=== PATIENT | female | born 1985 ===

== ENCOUNTER 2017-08-24 06:06 | Inpatient (IN) | payer BC ==
[2017-08-24] MEDS ORDERED: ceFAZolin 1 gm in NS 0 GM/0 ML BAG IVPB ONE (07:28)
[2017-08-24] MEDS ORDERED: Propofol 10 mg/ml Inj (20 ML) ONE (07:36)
[2017-08-24] MEDS ORDERED: Midazolam 2 MG/2 ML VIAL ONE (07:36)
[2017-08-24] MEDS ORDERED: Vasopressin 20 Units/ml Inj ONE (07:41)
[2017-08-24] MEDS ORDERED: Bupivacaine-Epi 0.5%-1:200,000 PF Inj IJ ONE (08:00)
[2017-08-24] MEDS ORDERED: ceFAZolin IV 2 gm in Dextrose 2 GM/50 ML BAG IVPB ONE (08:08)
[2017-08-24] MEDS ORDERED: Sodium Chloride 0.9% 20 ML IV ONE (08:20)
[2017-08-24] MEDS ORDERED: Methylene Blue 10 mg/mL(10ml) IV ONE (09:01)
[2017-08-24] MEDS ORDERED: Neostigmine Methylsulfate 3mg/3ml Syringe IV ONE (10:21)
--- NOTE | 2017-08-24 13:27 | PCM.SURG1 ---
Surgeon's Initial Post Op Note - Surgeon's Notes Surgeon: Olayinka Izquierdo MD Network Firewall Engineer: Brittany KATZ Type of Anesthesia: General Endo, Local Pre-Operative Diagnosis: Symptomatic fibroid uterus. Abnbormal uterine bleeding. Chronic pelvic pain Operative Findings: Bulky fibroid uterus, multiple >10 myomas, myomas intramura , submucosal and suserosal. Uterus size approx 16 weeks size. normla bladder anatomy, ureters efluxing urine freely. left ovarian cyst excised. tubes appeared normal. Post-Operative Diagnosis: fibroid uterus. chronic pelvic pain. abnormal bleeding. interstitial cystitis Operation Performed: Robotic assisted myomectomy >10 myomas. laparotomy. Lysis of adhesions. Diagnostic cystoscopy Specimen/Specimens Removed: Myomas Estimated Blood Loss: EBL {In ML}: 20 Blood Products Given: N/A Drains Used: No Drains Post-Op Condition: Good Date of Surgery/Procedure: 08/24/17 Time of Surgery/Procedure: 13:29
--- NOTE | 2017-08-24 13:32 | PCM.OP ---
Operative Report - Operative Report Date of Surgery/Procedure: 08/24/17 Time of Surgery/Procedure: 13:30 Surgeon: Olayinka Izquierdo MD Talent Specialist: Brittany KATZ Anesthesia/Sedation: General with ET tube Pre-Operative Diagnosis: Chronic pevic pain. Fibroid uterus. Abnormal uterine bleeding Post-Operative Diagnosis: Chronic pevic pain. Fibroid uterus. Abnormal uterine bleeding. Interstitial cystitis Indication for Surgery: Worsening pelvic pain, pressure and abnormal uteirne bleeding Operative Findings: approx 16 weeks size fibroid uterus. large simple left ovarian cyst. intrapelvic adhesions. Cystoscopy with Len altamirano c/w IC possible. normla appearing tubes Procedure/Operation Description: Roboic myomectomy >10 myomas. Laparotomy. Lysis of adhesions. Diagnostic cystoscopy. detailed operative description *. This is a 32 year's old [place] female with an enlarged fibroid uterus, associated abnormal uterine bleeding, chronic pelvic pain and urinary frequency urgency. Following complete workup at the office which included an ultrasound, pelvic MRI as well as Pap smear a decision was made to proceeds with a robotic assisted myomectomy. The patient underwent a robotic assisted myomectomy in the past, and now is presenting with recurrence of uterine fibroids. After proper consent was obtained from the patient was taken to the operating room where general anesthesia was obtained without difficulty. She was placed in dorsal lithotomy position her legs were placed in adjustable Calvin stirrups. Careful attention was placed to avoid over-flexion or over- rotation of the lower extremities at the hip or the knee joints. Exam under anesthesia revealed a massively enlarged fibroid uterus, approximately 16 weeks size none mobile uterus. She was prepped and draped appropriately for robotic assisted myomectomy. Barragan catheter was inserted under sterile conditions. A standard size V-care uterine manipulator was inserted through the cervix and secured. Local anesthetic solutions of 0.25% Marcaine with epinephrine were utilized to infiltrate the skin prior to all abdominal skin incisions. A total of 20 mL of 0.25% Marcaine was utilized throughout the procedure. While tenting the abdominal wall, a Veres needle was carefully inserted above the umbilicus and a pneumoperitoneum was obtained. Intraperitoneal placement was confirmed with a droplet of water test through the needle as well as a significant drop in intra-abdominal pressure. A total of approximately 3 and half liters of CO2 gas was utilized to achieve pneumoperitoneum, and the limits intra-abdominal pressure was set at 15 mm. Approximately 3 cm above the umbilicus in the midline, an 8mm incision was made with a scalpel and a robotic trocar was introduced. A robotic camera was inserted and an initial survey of the patient's abdomen revealed an enlarged bulky fibroid uterus, boggy in appearance. Multiple intramural myomas were noted involving the posterior uterine well, the fundus, as well as the LEFT lateral uterine wall. Extensive peritoneal and omental adhesions involving loops of bowel and anterior abdominal well were identified; Extensive peritoneal adhesions were noted in the posterior cul-de-sac as well as to the anterior abdominal wall. Both ovaries and fallopian tubes appeared normal however adherent to the pelvic viscera and pelvic sidewall. The patient was placed in moderate Trendelenburg position. 3 robotic ports were utilized for this procedure. The first robotic port was placed on the patient's LEFT side approximately 6 cm superior today LEFT superior iliac crest. The second robotic port was placed 6 cm superior to the iliac crest on the RIGHT side. The third robotic port was placed approx. 8 cm right lateral the camera port in the midline. And finally an janitorial assistant port which was 12 mm in diameter was inserted approximately 8 cm LEFT lateral of the camera port in the midline. Talent Specialist port utilized was a VersaStep trocar system. All ports were approx. aligned along the same horizontal line on the abdomen in an arched fashion. All trocars were inserted under direct visualization while tenting the abdominal wall was then massively enlarged uterus extended past the umbilicus level. The placement of the trocars was all accomplished under careful and meticulous placement under direct visualization. Following the placement of all trocars, the da Virgil robotic system was docked in a parallel fashion without difficulty. The following instruments were utilized for this procedure: the bipolar cautery device, a monopolar oneal and finally a ProGrasp. Meticulous and careful lysis of adhesions as well as enterolysis was accomplished utilizing the monopolar oneal and bipolar device. Prior to the start of the myomectomy, both ureters and their courses were visualized; peristalsis bilaterally. Extensive lysis of adhesions and enterolysis was completed using the sharp and blunt dissection. Multiple bowel loops were released following the lysis of adhesions. The ovaries and tubes were also released from the dense peritoneal adhesions likely from her prior myomectomy. Tight and extensive adhesions focused mainly on the pelvic sidewall on the LEFT as well as the anterior abdominal wall, multiple loops of bowel were adherent to the incisional sites on the uterus from her prior robotic myomectomy. Following the completion of the lysis of adhesions and release of bowel adhesions, the pelvic anatomy was cleared and ready for the myomectomy. Diluted Pitressin solution 40 units in 120 mL of saline was utilized to inject around the myomas capsules in the anterior wall of the uterus as well in the posterior uterine wall and finally the fundus. The injection of the PITRESSIN solution into the uterine well to assist in hemostasis vaso-constriction was accomplished for a spinal needle inserted through the abdominal well into the peritoneal cavity. For each incision, a full thickness elliptical incision was made into the serosa of the uterus and carried down to the myoma capsule. Blunt and sharp dissection was used to enucleate the myomas. The first incision was made into the posterior uterine wall close to the fundus, extending from one lateral edge of the uterus to the opposite edge. Sharp and blunt dissection was carried out in a meticulous fashion to enucleate a cluster of large myomas which were placed in the abdominal cavity for later extraction. The endometrial cavity was not entered. The second large elliptical incision started on the anterior uterine well and extended in an elliptical fashion from RIGHT to LEFT edges of the uterus, excising a large fragment of the uterine serosa overlying the large cluster of myomas. Careful attention was paid to avoid the fallopian tubes insertions or cornuas during this process. Lastly, additional elliptical incision was made into the fundus and extending LEFT lateral. Full thickness incision was serosa and muscularis exposed a cluster of myomas extending into the submucosal region. Sharp and blunt dissection was utilized to excise and enucleate these myomas which were placed in the posterior cul-de-sac for later extraction. Multilayer closure was needed to close the space where the myomas were removed from. Using a 2-0 v-lock in continues fashion, good hemostasis was achieved. Excess serosa was excised to allow for tight closure of the serosal surface. All serosal incisions were closed utilizing 3-0 Monocryl in a baseball -like stitch fashion. Both anterior and posterior as well as fundal large elliptical incisions were closed in a similar fashion. FloSeal's as well as Interceed were applied to all incisions. Excellent hemostasis was noted throughout. The abdomen was throughout irrigated and cleared of all clots and debris. LEFT ovarian cyst was addressed next, utilizing sharp and blunt dissection the cyst was a nucleated placed in an Endo Catch and extracted from the patient's abdomen and sent to pathology labeled appropriately. All instruments removed under direct visualization and robotic arms were undocked and removed. A posterior colpotomy incision was made utilizing the monopolar oneal, and numerous myomas were delivered through that incision labor was appropriately and sent to pathology. The multiple large myomas approximately 7- 10 cm in diameter were also attempted a delivery to reduce colpotomy incision, however these attempts failed. A large diameter of these myomas could not pass through the colpotomy incision as this patient is a nulliparous limited space in the vagina. Decision was made to proceed with a PFANNENSTIEL incision for extraction of the large myomas from the patient's abdomen. At this time, attention was then turned to the patient's abdomen where the extraction of the multiple myomas. A PFANNENSTIEL incision was made into the abdominal wall with a scalpel, an incision was extended to the level of the rectus fascia. The fascia was incised in the midline and the incision was extended. The rectus muscles were then in the midline and incision was extended. The peritoneal cavity was entered sharply and incision was extended. The multiple myomas which were tied together the extracted this incision. The myomas were sent to pathology along with the excess serosal fragments labeled appropriately. The abdomen was throughout irrigated and cleared of all clots and debris. The peritoneum was closed with 2-0 Vicryl in continuous fashion. The fascia was closed with 0 Vicryl in continuous fashion. And the skin was closed with 4-0 Monocryl in subcutaneous fashion. All skin incisions were closed utilizing a 4-0 Monocryl in a subcutaneous fashion; Dermabond was applied to all incisions. The janitorial assistant port was closed in a fascial layer utilizing 2-0 Vicryl in an interrupted fashion. Due to the complexity and proximity to the ureters and iliac vessels, a decision was made to proceed with a diagnostic cystoscopy. A 30 degree cystoscope was advanced into the bladder, and an initial survey of the bladder revealed normal appearing bladder anatomy. The dome and trigone of the bladder were normal appearing. The ureters were visualized efluxing urine freely. Prior to incision patient received prophylactic antibiotics, prior to closure sponge lap and needle counts are correct x2. Patient tolerated the procedure well and was taken to recovery room in stable condition. This is an exceptionally difficult surgical procedure due to the massive size of the fibroid uterus, distorted pelvic and abdominal cavity due to adhesions from prior myomectomy. Estimated Blood Loss: 20 Blood Replaced: none Sponge/Instrument Count: count correct times 2 Drains: none Complications: none Specimen: myomas Discharge & Condition: as per criteria
[2017-08-24] MEDS: HYDROmorphone 0.5 mg/0.5 ml ISec IVP PRN ×4 (13:34→14:54)
[2017-08-24] MEDS ORDERED: Morphine 4 MG/ML VIAL IVP PRN (13:36)
[2017-08-24] MEDS ORDERED: Oxycodone/Acetaminophen 5/325 mg Tab PO PRN (13:36)
[2017-08-24] MEDS ORDERED: Sodium Chloride 0.9% 1,000 ML IV SCH (13:45)
[2017-08-24] MEDS ORDERED: Sodium Chloride 0.9% 1,000 ML IV ONE (16:00)
[2017-08-24] MEDS: cefOXitin 2 GM in Sodium Chloride 0.9% 100 ML IVPB SCH (16:20)
[2017-08-24] MEDS: Benzocaine/Menthol (Cepacol) Lozenge MT PRN (20:23)
[2017-08-25] MEDS ORDERED: Acetaminophen IV 1,000 MG in Premixed IV 1 EA IV PRN (00:25)
[2017-08-25 00:27] VITALS: BP 100/61
[2017-08-25] MEDS: cefOXitin 2 GM in Sodium Chloride 0.9% 100 ML IVPB SCH ×2 (00:30→12:27)
[2017-08-25] MEDS: Benzocaine/Menthol (Cepacol) Lozenge MT PRN ×2 (00:43→08:24)
[2017-08-25 07:46] LABS: BLOOD UREA NITROGEN 6 mg/dL (7-17); CALCIUM 7.2 mg/dl (8.6-10.4); GFR AFRICAN-AMERICAN > 60; GFR NON-AFRICAN AMERICAN > 60
[2017-08-25 07:54] LABS: MEAN CELL VOLUME 87.6 fL (81.0-99.0); MEAN CORPUSCULAR HEMOGLOBIN 30.6 pg (27.0-31.0); MEAN PLATELET VOLUME 8.4 fL (7.2-11.7); RBC 4.05 Mil/uL (3.80-5.20); RED CELL DISTRIBUTION WIDTH 13.3 % (11.5-14.5); WHITE BLOOD COUNT 10.6 K/uL (4.8-10.8)
[2017-08-25 08:00] LABS: HEMOGLOBIN 12.4 g/dL (11.0-16.0)
[2017-08-25] MEDS ORDERED: Potassium Chloride 20 mEq ER Tab PO ONE (10:15)
[2017-08-25] MEDS ORDERED: cefOXitin IV 2 gm in Dextrose 2 GM/50 ML BAG IVPB ONE (11:06)
--- NOTE | 2017-08-25 11:10 | CP.PCM.PN ---
Subjective - Date & Time of Evaluation Date of Evaluation: 08/25/17 Time of Evaluation: 11:10 - Subjective Subjective: Patient states pain is more controlled now. When she took the morphine she didn' t like how she felt, was flushed. She has had vomiting from percocet in the past and that is why she didn't want to take that. Tolerating liquid diet, will advance. +passing gas, has not yet voided. Is out of bed. Objective - Vital Signs/Intake and Output Vital Signs (last 24 hours): Temp Pulse Resp BP Pulse Ox 98.8 F 87 20 100/61 97 08/25/17 00:26 08/25/17 00:26 08/25/17 00:26 08/25/17 00:26 08/25/17 00:26 - Medications Medications: Current Medications Acetaminophen (Tylenol 325mg Tab) 975 mg PO Q6 PRN PRN Reason: Pain, moderate (4-7) Last Admin: 08/25/17 08:14 Dose: 975 mg Benzocaine/Menthol (Cepacol Sore Throat) 1 tierra MT Q2 PRN PRN Reason: Sore Throat Last Admin: 08/25/17 08:24 Dose: 1 tierra Cefoxitin Sodium (Mefoxin Iv 2 Gm Duplex) 2 gm in 50 mls @ 50 mls/hr IVPB ONCE ONE Stop: 08/25/17 12:05 Ketorolac Tromethamine (Toradol) 30 mg IVP Q6H PRN PRN Reason: Pain, moderate (4-7) Tramadol HCl (Ultram) 50 mg PO TID PRN PRN Reason: Pain, severe (8-10) - Labs Labs: 08/25/17 07:12 08/25/17 07:12 - GI/Abdominal Exam Additional comments: incisions intact, no visible drainage, mild distension, abd soft, mildly tender. calves soft NT neg homnas Assessment and Plan (1) Uterine myoma Assessment & Plan: POD#1 s/p robotic assisted myomectomy -currently on last dose of antibiotics -patient yet to void d/c home today after voiding tramadol rx for pain medication continue colace encourage OOB abd binder for comfort d/w Dr. Izquierdo, agrees with above Status: Acute (2) Chronic pelvic pain in female Status: Acute (3) Abnormal uterine bleeding Status: Acute
[2017-08-25 19:31] VITALS: PULSE 81; RESP 18; TEMP 99; O2SAT 98
== END 2017-08-25 14:30 | disposition home or self-care (01) | DRG 743 ==
LOC: C.SDS 06:06 → C.9S 13:36 → C.4M 17:02
PROVIDERS: ADMIT Obstetrics & Gynecology; ATTEND Obstetrics & Gynecology
PROC: 0UB10ZZ Excision of Left Ovary, Open Approach (ICD-10-PCS; 2017-08-24)
PROC: 0TJB8ZZ Inspection of Bladder, Via Natural or Artificial Opening Endoscopic (ICD-10-PCS; 2017-08-24)
PROC: 8E0W0CZ Robotic Assisted Procedure of Trunk Region, Open Approach (ICD-10-PCS; 2017-08-24)
PROC: 0UB90ZZ Excision of Uterus, Open Approach (ICD-10-PCS; principal; 2017-08-24 07:45)
PROC: 0JNC0ZZ Release Pelvic Region Subcutaneous Tissue and Fascia, Open Approach (ICD-10-PCS; 2017-08-24 07:45)
DX: D25.1 Intramural leiomyoma of uterus (principal); N30.11 Interstitial cystitis (chronic) with hematuria; N83.202 Unspecified ovarian cyst, left side; D25.0 Submucous leiomyoma of uterus; D25.2 Subserosal leiomyoma of uterus; N73.6 Female pelvic peritoneal adhesions (postinfective); N93.9 Abnormal uterine and vaginal bleeding, unspecified